=== PATIENT | female | born 1980 | race Caucasian/White ===

== ENCOUNTER 2017-09-28 18:51 | Emergency (ER) | payer OTHER ==
[~2017-09-28] VITALS: Ht 165.1 cm; Wt 91.7 kg
[~2017-09-28 18:51] MED LIST: BACTRIM,SEPT1 TABLET PO; BENTYL20 MG PO; CLEOCIN300 MG PO; DIFLUCAN150 MG PO; FLEXERIL10 MG PO; MEDROL DOSEPAK4 MG PO; MOTRIN600 MG PO; MOTRIN800 MG PO; MULTIVITAMIN1 EAC2 PO; NAPROSYN500 MG PO; NOHOMEMEDS; NORCO 5/3251 TABLET PO; TYLENOL REGULA325 MG PO; ZOFRAN4 MG PO
[2017-09-28 19:24] LABS: HEMATOCRIT 43.3 % (36.0-46.0); HEMOGLOBIN 14.6 G/DL (11.9-15.5); MCH 30.5 PG (29.0-34.0); MCHC 33.7 G/DL (30.0-36.0); MCV 90.6 FL (83-99); PLATELET COUNT 326 K/uL (156-360); RBC DIS.WIDTH-CV 12.2 % (11.8-14.6); RBC DIS.WIDTH-SD 40.5 % (39-53); RED BLOOD COUNT 4.78 M/uL (3.80-5.20)
[2017-09-28 19:33] LABS: CHLORIDE 102 mEq/L (99-109); POTASSIUM 3.8 mEq/L (3.7-5.4); SODIUM 139 mEq/L (136-147)
[2017-09-28 19:34] LABS: GLUCOSE 98 mg/dL (70-99)
[2017-09-28 19:38] LABS: CREATININE 0.9 mg/dL (0.6-1.3); GFR ESTIMATE (CALCULATED) > 59 mL/min/
[2017-09-28 19:39] LABS: UREA NITROGEN (BUN) 15 mg/dL (9-23)
[2017-09-28 22:52] LABS: D-DIMER ELISA < 150.00 ng/mLDDU (<230)
[2017-09-28 23:05] LABS: TROP-I INTERPRETATION NEGATIVE; TROPONIN-I < 0.01 ng/mL (0.0-0.30)
[2017-09-29 00:09] VITALS: BP 142/96
== END 2017-09-29 00:09 | disposition home or self-care (01) ==
LOC: EME 18:51
DX: R07.9 Chest pain, unspecified (principal); R06.00 Dyspnea, unspecified; F41.9 Anxiety disorder, unspecified; Z88.0 Allergy status to penicillin; Z88.1 Allergy status to other antibiotic agents
CPT/HCPCS: 71020; 80048; 84484; 85027; 85379; 93005; 99281; 99283